=== PATIENT | female | born 1960 | race Caucasian/White ===

== ENCOUNTER 2017-02-27 11:55 | Emergency (ER) | payer OTHER ==
[~2017-02-27] VITALS: Ht 170.2 cm; Wt 67.5 kg
[~2017-02-27 11:55] MED LIST: ANT25 PO; ATOR80TA PO; BOAS PR; CIPR1TAB11 PO; PHEN-876 PO; PRT/20 PO; PXL/40 PO
[2017-02-27 12:01] VITALS: TEMP 36.9; Ht 170.2 cm; Wt 67.5 kg
--- NOTE | 2017-02-27 12:55 | DIAGNOSTIC IMAGING REPORT ---
RIGHT ANKLE MIN 3 VIEWS ROUTINE CLINICAL HISTORY: Right ankle pain. Recent fall. COMPARISON: None FINDINGS: Alignment of the right ankle is anatomic. There is no fracture. Talar dome is intact. There is mild posterior calcaneal spurring. IMPRESSION: No acute fracture or dislocation of the right ankle. Electronically signed by: Truong Bowers M.D. 02/27/2017 12:53 PM Dictated Date/Time: 02/27/2017 12:52 PM
[2017-02-27] MEDS ORDERED: MECL1TAB40 PO (13:23)
--- NOTE | 2017-02-27 13:56 | EMERGENCY ROOM VISIT NOTE ---
ED Visit Note First contact with patient: 12:12 CHIEF COMPLAINT: Right ankle pain 2 weeks HISTORY OF PRESENT ILLNESS: Patient is a 56-year-old white female who presents to emergency department for evaluation of lateral right ankle pain 2. She relates that she had an injury about 2 weeks ago when her right knee buckled on her and she nearly fell. She may have rolled the ankle at the time of the injury. Since then she has noted pain and swelling in the lateral aspect of the right ankle. She has alternated Tylenol and ibuprofen for her symptoms. She has been ambulatory on the leg otherwise. She notes that it is limited, but the swelling worsen that she is on it more during the day. She denies a prior history of injuries to this ankle. There is no foot or knee pain. REVIEW OF SYSTEMS: Review of systems as per HPI. All other systems reviewed were negative. At least 6 systems reviewed. PMH: Electronic medical records are reviewed and summarized as above/below. See Problem List. SOCIAL HISTORY: Patient lives at home. Nonsmoker. PHYSICAL EXAM: Vital Signs: Reviewed Nurse's notes. MENTAL STATUS: Alert, oriented, and cooperative. The right ankle is swollen and tender over the lateral aspect but the skin is intact and there is no ligamentous instability. No pain over the 5th metatarsal or fibular head. Lisfranc joint is negative. There is no deformity. The foot and toes are warm and well-perfused. Sensation to pain and light touch is intact. EMERGENCY DEPARTMENT COURSE: X-ray reveals no fracture. A compression sleeve and gel splint were applied to the ankle under my direction and the position was satisfactory. Conservative care measures were discussed. Patient is established with Dr. Gray and was encouraged to follow-up with him for further care and management, particularly if she does not feel like her symptoms are improving. Differential diagnosis include foot verses ankle sprain/fracture, contusion, dislocation. Problem List Medical Problems: (1) Cervicogenic headache Status: Chronic (2) Dyslipidemia Status: Chronic (3) Generalized anxiety disorder Status: Chronic (4) Panic disorder Status: Chronic (5) SLEEP DISTURBANCE NOS Status: Chronic Current/Historical Medications Scheduled Meclizine (Antivert *), 25 MG PO TID PRN Meclizine HCl (Meclizine HCl), 1 TAB PO TID Pantoprazole Sodium (Protonix), 20 MG PO DAILY Paroxetine (Paxil), 40 MG PO DAILY Allergies Coded Allergies: Iodinated Contrast Media (Verified Allergy, Unknown, HIVES, 01/09/12) Lorazepam (Verified Adverse Reaction, Intermediate, NAUSEA, 01/09/12) Vital Signs Date Time Temp Pulse Resp B/P Pulse Ox O2 Delivery O2 Flow Rate FiO2 02/27/17 14:03 67 18 123/84 97 Room Air 02/27/17 12:01 36.9 76 20 135/87 94 Room Air Departure Information Impression Primary Impression: Right ankle sprain Referrals No Doctor, Assigned (PCP) Patient Instructions [facility] Additional Instructions Ibuprofen(Motrin, Advil) may be used for fever or pain. Use 600mg every six hours as needed. Take with food. Avoid using more than 2400mg in a 24 hour period. Do not use 2400mg per day for more than three consecutive days without physician direction. Prolonged inappropriate use can lead to stomach upset or ulcers. This medication can be taken if you need to drive, work, or perform activities which may be dangerous when taking narcotic pain medication. (AND/OR) Acetaminophen(Tylenol) may be used for fever or pain. Use 1000mg every six hours as needed. Avoid using more than 3000mg in a 24 hour period. This medication can be taken if you need to drive, work, or perform activities which may be dangerous when taking narcotic pain medication. Ice compresses for 20 minutes at a time four times daily for 2-3 days. Use the gel splint as instructed. Rest and elevate your injury. Continue current medications. Return to the ER immediately for any numbness, tingling, severe pain, extreme swelling in the extremity or as needed. Followup with your family doctor or orthopedic surgery if no improvement in 5-7 days.
[2017-02-27 14:03] VITALS: BP 123/84; PULSE 67; O2SAT 97
== END 2017-02-27 14:05 | disposition home or self-care (01) ==
LOC: C.EDB 11:56 → C.EDD 14:05
DX: S93.401A Sprain of unspecified ligament of right ankle, initial encounter (principal); X58.XXXA Exposure to other specified factors, initial encounter; F41.1 Generalized anxiety disorder; Z79.899 Other long term (current) drug therapy

== ENCOUNTER 2017-09-30 08:01 | Emergency (ER) | payer OTHER ==
[~2017-09-30] VITALS: Ht 172.7 cm; Wt 67.8 kg
[~2017-09-30 08:01] MED LIST changes: -ATOR80TA PO; -BOAS PR; -CIPR1TAB11 PO; +MECL1TAB40 PO; -PHEN-876 PO
[2017-09-30 08:07] VITALS: TEMP 36.4; Ht 172.7 cm; Wt 67.8 kg
[2017-09-30] MEDS ORDERED: MoRPHine SULFATE 10 MG/ML CARP/VIAL IV STA (08:38)
[2017-09-30] MEDS ORDERED: ONDANSETRON INJ 2 MG/ML 2 ML VIAL IV STA (08:38)
[2017-09-30] MEDS ORDERED: ATOR-24 PO (08:50)
[2017-09-30 09:27] LABS: BASO % 0.3 %; BASO ABS # 0.02 K/uL (0-0.2); COMPLETE YES; EOS % 1.1 %; HEMATOCRIT 40.3 % (37-47); LYMPH % 31.9 %; LYMPH ABS # 2.24 K/uL (1.2-3.4); MEAN CELL VOLUME 89.8 fL (80-100); MEAN CORPUSCULAR HEMOGLOBIN 29.4 pg (25-34); MEAN CORPUSCULAR HGB CONC 32.8 g/dl (32-36); MEAN PLATELET VOLUME 10.3 fL (7.4-10.4); MONO % 5.6 %; NEUT % 61.1 %; PLATELET COUNT 305 K/uL (130-400); RED BLOOD COUNT 4.49 M/uL (4.2-5.4); WHITE BLOOD COUNT 7.02 K/uL (4.8-10.8)
--- NOTE | 2017-09-30 09:42 | DIAGNOSTIC IMAGING REPORT ---
THORACIC SPINE WITHOUT CLINICAL HISTORY: Back pain. Severe back spasms. COMPARISON STUDY: No previous studies for comparison. FINDINGS: There is mild rightward curvature of the thoracic spine. Vertebral body heights are maintained. No fracture or suspicious lesion is identified by CT. A 7 mm lucent lesion with thin sclerotic rim within the T3 vertebral body has benign imaging characteristics. There is mild multilevel endplate osteophytosis. Paravertebral soft tissues are unremarkable by CT. Central canal and neural foramen are suboptimally assessed by CT. IMPRESSION: 1. No acute thoracic spine fracture or subluxation. 2. Mild rightward curvature of the thoracic spine. 3. Mild multilevel degenerative disc disease of the thoracic spine. Electronically signed by: Truong Bowers M.D. 09/30/2017 9:41 AM Dictated Date/Time: 09/30/2017 9:36 AM
[2017-09-30 09:43] LABS: BUN/CREATININE RATIO 15.5 (10-20); CALCIUM 9.2 mg/dl (8.5-10.1); CREATININE 0.82 mg/dl (0.60-1.20)
[2017-09-30] MEDS ORDERED: MoRPHine SULFATE 4 MG/ML 1 ML CARP\\VIAL IV STA (09:48)
[2017-09-30 09:57] LABS: URINE APPEARANCE CLEAR (CLEAR); URINE BILIRUBIN NEG (NEG); URINE COLOR YELLOW; URINE NITRITE NEG (NEG); URINE PH 7.5 (4.5-7.5); UROBILINOGEN NEG (NEG)
[2017-09-30 10:03] LABS: MANUAL MICROSCOPIC REQUIRED? NO; REVIEW REQ? NO
[2017-09-30 10:06] VITALS: O2SAT 97
[2017-09-30] MEDS ORDERED: DiphenhydrAMINE HCL 50 MG/ML VIAL IV STA (10:11)
[2017-09-30] MEDS ORDERED: FENTANYL CITRATE INJ 50 MCG/1 ML 2 ML VIAL IV ONE (10:15)
[2017-09-30 10:54] VITALS: O2SAT 95
[2017-09-30] MEDS ORDERED: CYCL10TA6 PO (11:14)
[2017-09-30] MEDS ORDERED: HYDR-5688 PO (11:14)
[2017-09-30 11:55] VITALS: BP 101/60; PULSE 87
--- NOTE | 2017-10-01 08:36 | EMERGENCY ROOM VISIT NOTE ---
ED Visit Note First contact with patient: 08:14 Chief Complaint: Back pain. History of Present Illness: Ms. Shaw is a 57-year-old white female who ambulates into the ED accompanied by a male friend complaining of thoracic back pain. Historically patient has had a previous kidney stone requiring surgical extraction and she reports she has a previous history of lumbar surgery for discectomy and a partial laminectomy. Both of these surgeries have been without previous complications. Patient reports she was doing some heavy lifting approximately 4 days ago but did not feel like she injured her back. 3 days ago when she woke from sleep she started having back spasms. Since that time her spasms have been constant but has waxed and waned in intensity. She places herself as illness in the mid thoracic area with right sided prominence. She rates her discomfort 8/10. Her pain is nonradiating. Her pain worsens with movement of the thoracic spine and minimally with palpation. She reports she's been taken Tylenol with minimal relief of her discomfort up until approximately 10 hours ago. Associated with her pain she reports she's been nauseated but has not vomited, she has been having chills and diaphoresis and has had increased urinary frequency but no burning or hematuria. She denies skin eruptions, skin color changes, upper respiratory tract symptoms , shortness of breath, chest pain, abdominal pain, vaginal bleeding, vaginal discharge, rectal bleeding, black/tarry stools, flank pain, genital paresthesias , bowel and bladder dysfunction, extremity weakness/numbness/tingling. Review of Systems: As noted above in history of present illness. All body systems were reviewed and found to be negative as noted above. Past Medical History: As previously noted and unspecified back, knee surgery, right inguinal hernia surgery Current Medications: Paxil, Protonix, Antivert and Lipitor. Allergies to Medications: IV contrast dye. Social History: Patient is currently employed; she feels safe in her home environment; she denies tobacco and alcohol use. Physical Examination: Vital Signs: Date Time Temp Pulse Resp B/P (MAP) Pulse Ox O2 Delivery O2 Flow Rate FiO2 09/30/17 11:55 87 101/60 09/30/17 10:54 78 16 131/83 95 09/30/17 10:06 97 Room Air 09/30/17 10:05 66 20 156/89 97 Room Air 09/30/17 08:07 36.4 79 18 117/78 96 Room Air GENERAL: 57-year-old female in moderate distress due to pain, nontoxic-appearing , afebrile and hemodynamically stable. NEUROLOGICAL: Awake, alert and oriented to person, place and time. Answering questions appropriately and following commands. Normal gait. Good hand eye coordination. No focal motor sensory deficits. SKIN: Warm, dry and pink. No soft tissue eruptions or trauma noted. HEENT: Atraumatic and normocephalic. PERRLA. Sclera white and conjunctiva pink. No drainage from naris. Oral cavity moist and pink. Pharynx is nonerythematous or edematous. Speech normal. No lymphadenopathy. Trachea midline. No jugular venous distention. BACK: Mild tenderness over the thoracic mid spine in the area of T5 through T7. Moderate tenderness in the right sided paraspinous musculature with muscle spasm. Mild right sided CVA tenderness. THORAX: Lungs sounds are clear to auscultation and equal bilaterally with symmetrical chest wall. No wheezing, rales or rhonchi. No crepitus, tenderness , subcutaneous air or deformities noted. HEART: Regular rate and rhythm. No gallops, rubs or murmurs are appreciated. ABDOMEN: Flat, soft and nontender. Positive bowel sounds in all quadrants. No guarding, rigidity or organomegaly. EXTREMITIES: Moves all extremities well on command and with purpose. All distal neurovascular statuses are intact and equal bilaterally. No calf tenderness or cords. 2+ patellar and Achilles deep tendon reflexes intact and equal bilaterally. 4/5 muscle strength in all movements of the hips, knees and ankles. ED Course: Patient is assessed as noted above. Patient's medication list was reviewed. Laboratory Testing: Test 09/30/17 09:10 09/30/17 09:42 Range/Units White Blood Count 7.02 4.8-10.8 K/uL Red Blood Count 4.49 4.2-5.4 M/uL Hemoglobin 13.2 12.0-16.0 g/dL Hematocrit 40.3 37-47 % Mean Corpuscular Volume 89.8 80-100 fL Mean Corpuscular Hemoglobin 29.4 25-34 pg Mean Corpuscular Hemoglobin Concent 32.8 32-36 g/dl Platelet Count 305 130-400 K/uL Mean Platelet Volume 10.3 7.4-10.4 fL Neutrophils (%) (Auto) 61.1 % Lymphocytes (%) (Auto) 31.9 % Monocytes (%) (Auto) 5.6 % Eosinophils (%) (Auto) 1.1 % Basophils (%) (Auto) 0.3 % Neutrophils # (Auto) 4.29 1.4-6.5 K/uL Lymphocytes # (Auto) 2.24 1.2-3.4 K/uL Monocytes # (Auto) 0.39 0.11-0.59 K/uL Eosinophils # (Auto) 0.08 0-0.5 K/uL Basophils # (Auto) 0.02 0-0.2 K/uL RDW Standard Deviation 44.5 36.4-46.3 fL RDW Coefficient of Variation 13.6 11.5-14.5 % Immature Granulocyte % (Auto) 0.0 % Immature Granulocyte # (Auto) 0.00 0.00-0.02 K/uL Sodium Level 141 136-145 mmol/L Potassium Level 4.0 3.5-5.1 mmol/L Chloride Level 106 98-107 mmol/L Carbon Dioxide Level 30 21-32 mmol/L Anion Gap 4.0 3-11 mmol/L Blood Urea Nitrogen 13 7-18 mg/dl Creatinine 0.82 0.60-1.20 mg/dl Est Creatinine Clear Calc Drug Dose 74.5 ml/min Estimated GFR () 90.8 Estimated GFR (Non- 78.3 BUN/Creatinine Ratio 15.5 10-20 Random Glucose 102 70-99 mg/dl Calcium Level 9.2 8.5-10.1 mg/dl Lipase 311 73-393 U/L Urine Color YELLOW Urine Appearance CLEAR CLEAR Urine pH 7.5 4.5-7.5 Urine Specific [place] 1.020 1.000-1.030 Urine Protein NEG NEG Urine Glucose (UA) NEG NEG Urine Ketones NEG NEG Urine Occult Blood NEG NEG Urine Nitrite NEG NEG Urine Bilirubin NEG NEG Urine Urobilinogen NEG NEG Urine Leukocyte Esterase NEG NEG CT Thoracic Spine: Was reviewed by myself and read by the radiologist showing no acute fractures or subluxations, mild rightward curvature and mild multilevel degenerative disc disease. Patient was hydrated with normal saline and initially received 6 mg of morphine IV for pain and 4 mg of Zofran. Patient was reassessed multiple times during her stay in the emergency department. After patient's CT she reported she had a recent occurrence of pain but also reported that she noted a mild red streak from her IV site and she felt itchy; she subsequently received 25 mg of Benadryl IV and 50 g of fentanyl IV. Patient's case was reviewed with Dr. Ma; we agreed on diagnostic approach , treatment, disposition and plan. Patient was educated about today's findings and instructed on her treatment plan ; she verbalized understanding and agreement with this plan. Clinical Impression: Acute thoracic back pain. Decision-Making: Initially my differential diagnosis I considered musculoskeletal issues, nephrolithiasis, pancreatitis, pyelonephritis, and other causes. Disposition: Patient discharged home in stable condition; prior to departure she was reassessed and subjectively reported she was feeling much better and rated her discomfort 2/10. Plan: Comfort measures were discussed with the patient including proper lifting and moving techniques, ice and a sliding pain scale of ibuprofen, acetaminophen and [place]. Patient was encouraged to follow-up with her primary care provider next week for recheck. Patient was encouraged return to the ED for uncontrolled pain, abdominal pain, vomiting, fevers, genital paresthesias, bowel and bladder dysfunction, extremity weakness/numbness/tingling or any new/concerning symptoms.
== END 2017-09-30 11:58 | disposition home or self-care (01) ==
LOC: C.EDB 08:03
DX: M54.6 Pain in thoracic spine (principal); Z87.442 Personal history of urinary calculi; Z98.890 Other specified postprocedural states